=== PATIENT | female | born 1995 | race Caucasian/White ===

== ENCOUNTER 2023-05-23 10:42 | Day surgery (SDC) | payer BC ==
[2023-05-23] MEDS ORDERED: LACTATED RINGERS 1,000 ML IV ONE (10:54)
[2023-05-23 11:30] VITALS: RESP 14; TEMP 97.6
[2023-05-23] MEDS ORDERED: PROPOFOL 10 MG/ML 20 ML VIAL IV ONE (12:24)
[2023-05-23] MEDS ORDERED: LIDOCAINE 2% (PF) 20 MG/ML 5 ML VIAL ONE (12:24)
--- NOTE | 2023-05-23 12:32 | P.PCN ---
Date of Procedure: 05/23/23 Procedure(s) Performed: BRIEF HISTORY: Patient is a 28-year-old, pleasant, white female scheduled for an upper endoscopy as a part of evaluation of chronic epigastric and right upper quadrant abdominal pain for the last 6 months duration.. She has been on omeprazole 20 mg daily with some help. Recent ultrasound of the abdomen and The Abdomen Was Unremarkable. PROCEDURE PERFORMED: Esophagogastroduodenoscopy with biopsy. PREOPERATIVE DIAGNOSIS: Epigastric and right upper quadrant abdominal pain of 6 months duration. IV sedation per anesthesia. PROCEDURE: After informed consent was obtained, the patient was brought into the endoscopy unit. IV sedation was administered by Anesthesia under continuous monitoring. Initially the Olympus GIF-140 video endoscope was inserted into the mouth. Esophagus intubated without any difficulty. It was gradually advanced into the stomach and duodenum and carefully examined. The bulb and the second part of the duodenum appeared normal. Biopsies were done from the duodenum to rule out celiac disease. The scope at this time was withdrawn to the stomach, a dequately insufflated with air, and upon careful examination, mucosa of the antrum had patchy areas of erythema in the prepyloric area which was biopsied. Rest of the, body, cardia and the fundus appeared normal. The scope was then withdrawn into the esophagus. The GE junction was located at 39 cm from the incisors. The esophagus appeared normal. There were no erosions or ulcerations seen and the patient tolerated the procedure well. IMPRESSION: 1. Mild antral gastritis. 2. No evidence of esophagitis or peptic ulcer disease. RECOMMENDATIONS: The findings of this examination were discussed with the patient as well as a family. She was advised to follow with the biopsy results. She will continue current medications and she'll be seen in office in 2-3 weeks..
[2023-05-23 12:47] VITALS: PULSE 83
[2023-05-23] MEDS ORDERED: LIDOCAINE 1% (10MG/ML) FOR IV START INTRADERMA PRN (12:51)
[2023-05-23] MEDS ORDERED: LACTATED RINGERS 1,000 ML IV SCH (12:51)
[2023-05-23 13:12] VITALS: BP 123/83
== END 2023-05-23 13:17 | disposition home or self-care (01) ==
LOC: ORWHC2ENDO 10:42
PROVIDERS: ATTEND Internal Medicine Gastroenterology
DX: K29.50 Unspecified chronic gastritis without bleeding (principal); F17.200 Nicotine dependence, unspecified, uncomplicated; F32.A Depression, unspecified; F41.9 Anxiety disorder, unspecified; E66.01 Morbid (severe) obesity due to excess calories; Z68.41 Body mass index [BMI] 40.0-44.9, adult; Z79.899 Other long term (current) drug therapy
CPT/HCPCS: 81025; 88305; 43239; J2704; J2001